=== PATIENT | female | born 1995 | race Caucasian/White ===

== ENCOUNTER → 2020-11-19 | Outpatient (CLI) | payer OTHER ==
[~2020-11-19] MED LIST: COLACE100 MG PO; OBSTETRIX EC1 TAB.EC PO; PRENATAL CAPLE1 EACH PO; PROCTOCREAM-HC30 GM RC
== END | disposition home or self-care (01) ==
LOC: PRENATAL 08:36
PROVIDERS: ATTEND Obstetrics & Gynecology Maternal & Fetal Medicine
DX: O35.0XX1 Maternal care for (suspected) central nervous system malformation in fetus, fetus 1 (principal); O35.3XX1 Maternal care for (suspected) damage to fetus from viral disease in mother, fetus 1; O98.513 Other viral diseases complicating pregnancy, third trimester; Z36.89 Encounter for other specified antenatal screening; Z3A.29 29 weeks gestation of pregnancy

== ENCOUNTER 2021-01-20 11:34 | Inpatient (IN) | payer OTHER ==
[~2021-01-20] VITALS: Ht 157.5 cm; Wt 68.0 kg
[2021-01-20] MEDS ORDERED: ECOTRIN81 MG PO (11:40)
[2021-01-22] MEDS ORDERED: NAPR500T14 PO (08:59)
== END 2021-01-22 10:42 | disposition home or self-care (01) | DRG 807 ==
LOC: OB/GYN 11:34 → LDR 11:34 → OB/GYN 19:17
PROVIDERS: ADMIT Obstetrics & Gynecology; ATTEND Obstetrics & Gynecology
PROC: 10E0XZZ Delivery of Products of Conception, External Approach (ICD-10-PCS; principal; 2021-01-20)
PROC: 0HQ9XZZ Repair Perineum Skin, External Approach (ICD-10-PCS; 2021-01-20)
PROC: 10907ZC Drainage of Amniotic Fluid, Therapeutic from Products of Conception, Via Natural or Artificial Opening (ICD-10-PCS; 2021-01-20)
PROC: 3E033VJ Introduction of Other Hormone into Peripheral Vein, Percutaneous Approach (ICD-10-PCS; 2021-01-20)
PROC: 4A1HXFZ Monitoring of Products of Conception, Cardiac Rhythm, External Approach (ICD-10-PCS; 2021-01-20)
DX: O13.4 Gestational [pregnancy-induced] hypertension without significant proteinuria, complicating childbirth (principal); Z37.0 Single live birth; O70.0 First degree perineal laceration during delivery; O99.824 Streptococcus B carrier state complicating childbirth; Z3A.38 38 weeks gestation of pregnancy; Z20.822 Contact with and (suspected) exposure to COVID-19

== ENCOUNTER → 2021-03-26 08:00 | Outpatient (CLI) | payer OTHER ==
[~2021-03-26 08:00] MED LIST changes: +ECOTRIN81 MG PO; +NAPR500T14 PO
== END | disposition home or self-care (01) ==
LOC: LAB 08:00 → ADM 10:15 → CIR.AMB 03-28 10:15 → EDSTATUS 03-28 10:15 → CIR.AMB 03-28 13:45
PROVIDERS: ATTEND Obstetrics & Gynecology
DX: I10 Essential (primary) hypertension (principal); Z03.818 Encounter for observation for suspected exposure to other biological agents ruled out